=== PATIENT | female | born 1935 | race African-American/Black ===

== ENCOUNTER 2016-07-05 13:45 | Emergency (ER) | payer MEDICARE, MEDICAID ==
[~2016-07-05] VITALS: Ht 172.7 cm; Wt 68.2 kg
[2016-07-05 13:52] VITALS: Ht 172.7 cm; Wt 68.2 kg
[2016-07-05] MEDS ORDERED: SOD CHLORIDE 0.9% 1,000 ML IV STA (13:57)
--- NOTE | 2016-07-05 14:06 | ERD ---
ER Documentation Chief Complaint Date/Time DATE: 07/05/16 TIME: 14:04 Chief Complaint ALOC from SNF, low 02 sat HPI Patient is an 80-year-old female with history of psychosis and dementia [facility]2 sat and altered level of consciousness. According to the [facility], the patient's baseline mental status is alert and oriented 2, verbal. The patient is now nonverbal. Onset was sometime this morning, unknown time. prison states that the patient was also found to be hypoxic to the 80s, but EMS states that the patient had normal O2 sat during transport. Patient had a normal fingerstick glucose. Review of records show the patient was recently found to have an infiltrate on chest x-ray, but does not appear to currently be on antibiotics. ROS All systems reviewed and are negative except as per history of present illness. Medications Home Meds Unable to Obtain Active Prescriptions or Reported Meds Allergies Allergies: Coded Allergies: Unable to Assess (Verified Allergy, Unknown, 07/05/16) PMhx/Soc Past medical history: Psychosis, dementia Past surgical history: Unknown Social history: Lives in a SNF Hx Neurological Disorder: Yes (dementia) Hx Respiratory Disorders: No Hx Cardiac Disorders: No Hx Psychiatric Problems: No Hx Miscellaneous Medical Probl: Yes (anemia, dementia, parkinsons, GERD, OA) Hx Alcohol Use: No Hx Substance Use: No Hx Tobacco Use: No Smoking Status: Never smoker FmHx Unobtainable Physical Exam Vitals Vital Signs Date Time Temp Pulse Resp B/P Pulse Ox O2 Delivery O2 Flow Rate FiO2 07/05/16 13:52 98.1 78 15 147/91 100 Physical Exam Const: Alert, nonverbal Head: Atraumatic Eyes: Normal Conjunctiva, no pallor or icterus ENT: Normal External Ears, Nose and Mouth. Tacky mucous membranes Neck: Full range of motion. No JVD, no meningismus. Resp: Clear to auscultation bilaterally, no wheezes, no rales Cardio: Regular rate and rhythm, no murmurs Abd: Soft, non tender, non distended. No guarding Skin: No petechiae or rashes Back: No midline or flank tenderness Ext: No cyanosis, or edema Neur: Awake and alert, not following commands are spontaneously moving limbs. Psych: Flat affect Result Diagram: 07/05/16 1410 07/05/16 1410 Results 24 hrs Laboratory Tests Test 07/05/16 14:10 07/05/16 14:30 White Blood Count 3.310^3/ul Red Blood Count 4.6110^6/ul Hemoglobin 11.0g/dl Hematocrit 37.6% Mean Corpuscular Volume 81.6fl Mean Corpuscular Hemoglobin 23.9pg Mean Corpuscular Hemoglobin Concent 29.3g/dl Red Cell Distribution Width 14.9% Platelet Count 42507^3/UL Mean Platelet Volume 8.9fl Neutrophils % 32.6% Lymphocytes % 59.3% Monocytes % 7.2% Eosinophils % 0.6% Basophils % 0.3% Nucleated Red Blood Cells % 0.0/100WBC Neutrophils # 1.110^3/ul Lymphocytes # 2.010^3/ul Monocytes # 0.210^3/ul Eosinophils # 0.010^3/ul Basophils # 0.010^3/ul Nucleated Red Blood Cells # 0.010^3/ul Prothrombin Time 13.0Sec Prothrombin Time Ratio 1.0 INR International Normalized Ratio 0.98 Sodium Level 141mmol/L Potassium Level 3.7mmol/L Chloride Level 103mmol/L Carbon Dioxide Level 31mmol/L Anion Gap 11 Blood Urea Nitrogen 7mg/dl Creatinine 0.61mg/dl Glucose Level 87mg/dl Calcium Level 10.2mg/dl Total Bilirubin 0.8mg/dl Direct Bilirubin 0.00mg/dl Indirect Bilirubin 0.8mg/dl Aspartate Amino Transf (AST/SGOT) 22IU/L Alanine Aminotransferase (ALT/SGPT) 16IU/L Alkaline Phosphatase 129IU/L Ammonia < 0umol/l Troponin I < 0.012ng/ml Total Protein 8.5g/dl Albumin 4.1g/dl Globulin 4.40g/dl Albumin/Globulin Ratio 0.93 Urine Color LT. YELLOW Urine Clarity CLEAR Urine pH 7.5 Urine Specific [place] 1.010 Urine Ketones NEGATIVE Urine Nitrite NEGATIVE Urine Bilirubin NEGATIVE Urine Urobilinogen 0.2 E.U./dL Urine Leukocyte Esterase NEGATIVE Urine Hemoglobin NEGATIVE Urine Glucose NEGATIVE% Urine Total Protein NEGATIVE Current Medications Medications (Trade) Dose Ordered Sig/Setella Route PRN Reason Start Time Stop Time Status Last Admin Dose Admin Sodium Chloride (NS) 1,000 ml @ 1,000 mls/hr Q1H STAT IV 07/05/16 13:57 07/05/16 14:56 DC 07/05/16 14:23 Procedures/MDM EKG read by me: Time 1428, rate 77 Rhythm: Normal sinus [place]: Normal Intervals: Normal ST-T waves: no ischemic changes Ectopy: Occasional PVCs Q-waves: No Q waves, poor R-wave progression Impression: No evidence of ischemia, occasional PVCs MDM: Patient is an 80-year-old female with psychosis and dementia who is found to be less responsive today. There are no localizing neurologic symptoms or signs. On arrival in the ER the patient appeared catatonic, and quickly resolved to her baseline state. She now reports that she earlier had some suprapubic pain that is now resolved, and her son states that she has been reporting difficulty urinating. CT head and labs are all unremarkable, there is no evidence of UTI. The patient had a postvoid residual measured 2 hours after voiding that was 475 cc. The patient had received a liter bolus of saline. She likely has a mild to moderate level of urinary retention, which may be related to medications or underlying neurological condition, as the son states she is being followed by a neurologist for "leg locking." The patient has a normal, nonfocal neurologic exam at this time. She has benign abdominal exam. There is no report of back pain. The patient is chronically weak bilaterally on both legs. With regards to her transient alteration of mental status, I believe that this is likely related to her underlying sick psychosis and dementia and is not likely to be the result in acute neurologic event, given the lack of focality, and the appearance of a catatonic state on the patient's arrival. I have given strict instructions for the patient to return to the ER for any recurrence of similar symptoms, and to follow-up with PMD for further workup of urinary retention in the next 1 to 2 days. Departure Diagnosis: Primary Impression: Altered mental status Altered mental status type: transient alteration of awareness Qualified Code : R40.4 - Transient alteration of awareness Additional Impression: Urinary retention Condition: Stable TAMERA DO MD Jul 05, 2016 14:06
[2016-07-05 14:21] LABS: ADD SCAN DIFF NO
[2016-07-05 14:25] LABS: BASOPHILS % 0.3 % (0.0-2.0); EOSINOPHILS % 0.6 % (0.0-7.0); HEMATOCRIT 37.6 % (37.0-47.0); LYMPHOCYTES % 59.3 % (15.0-51.0); MEAN CORPUSCULAR HEMOGLOBIN 23.9 pg (29.0-33.0); MEAN CORPUSCULAR HGB CONC 29.3 g/dl (32.0-37.0); MEAN CORPUSCULAR VOLUME 81.6 fl (82.0-101.0); MEAN PLATELET VOLUME 8.9 fl (7.4-10.4); MONOCYTE # 0.2 10^3/ul (0.3-0.9); MONOCYTES % 7.2 % (0.0-11.0); NEUTROPHIL # 1.1 10^3/ul (1.6-7.5); NEUTROPHILS % 32.6 % (39.0-77.0); PLATELET COUNT 387 10^3/UL (140-415); RED BLOOD COUNT 4.61 10^6/ul (4.20-5.40); RED CELL DISTRIBUTION WIDTH 14.9 % (11.5-14.5); WHITE BLOOD COUNT 3.3 10^3/ul (4.8-10.8)
[2016-07-05 14:36] LABS: INR 0.98
--- NOTE | 2016-07-05 14:41 | RADRPT ---
PROCEDURE: XR Chest. CLINICAL INDICATION: Shortness of breath. Altered mental status. TECHNIQUE: Single frontal view. COMPARISON: None. FINDINGS: There is mild atelectasis at the lung bases. The lungs are otherwise clear. The heart is mildly enlarged. There is no pleural effusion. There is no pneumothorax. IMPRESSION: 1. Mild atelectasis at the lung bases. 2. Mild cardiomegaly. 3. Otherwise normal chest x-ray. RPTAT: QQ .Adam Martinez MD, Date Time Electronically viewed and signed by .Adam Martinez MD, on 07/05/2016 14:41 .R/
[2016-07-05 14:42] LABS: ALANINE AMINOTRANSFERASE 16 IU/L (13-69); ALBUMIN 4.1 g/dl (3.3-4.9); ALBUMIN/GLOBULIN RATIO 0.93; ALKALINE PHOSPHATASE 129 IU/L (42-121); ANION GAP 11 (8-16); ASPARTATE AMINO TRANSFERASE 22 IU/L (15-46); BILIRUBIN,INDIRECT 0.8 mg/dl (0-1.1); BILIRUBIN,TOTAL 0.8 mg/dl (0.2-1.3); BLOOD UREA NITROGEN 7 mg/dl (7-20); CALCIUM 10.2 mg/dl (8.4-10.2); CARBON DIOXIDE 31 mmol/L (21-31); CHLORIDE 103 mmol/L (97-110); CREATININE 0.61 mg/dl (0.44-1.00); GLUCOSE 87 mg/dl (70-220); POTASSIUM 3.7 mmol/L (3.5-5.1); SODIUM 141 mmol/L (135-144); TOTAL PROTEIN 8.5 g/dl (6.1-8.1)
[2016-07-05 14:51] LABS: TROPONIN-I < 0.012 ng/ml (0.00-0.12)
[2016-07-05 15:15] LABS: ADD UMIC NO; URINE BILIRUBIN (Dip) NEGATIVE (NEGATIVE); URINE BLOOD (Dip) NEGATIVE (NEGATIVE); URINE COLOR LT. YELLOW (YELLOW); URINE GLUCOSE (Dip) NEGATIVE (NEGATIVE); URINE KETONES (Dip) NEGATIVE (NEGATIVE); URINE LEUKOCYTE ESTERASE (Dip) NEGATIVE (NEGATIVE); URINE NITRITE (Dip) NEGATIVE (NEGATIVE); URINE TOTAL PROTEIN (Dip) NEGATIVE (NEGATIVE); URINE UROBILINOGEN (Dip) 0.2 E.U./dL (0.1-1.0)
--- NOTE | 2016-07-05 15:35 | RADRPT ---
PROCEDURE: CT Brain without. CLINICAL INDICATION: Altered mental status. TECHNIQUE: A CT of the brain was performed on multidetector high-resolution CT scanner utilizing a xial sections from the skull base through the vertex without contrast. The scan was reviewed in sof t tissue brain and high frequency resolution bone algorithm windows. Images were reviewed on a high -resolution PACS workstation. One or more the following does reduction techniques were utilized: Aut omated exposure control, adjustment of the mA/ or kV according to patient's size, or use of iterativ e reconstruction technique. The exam CTDI = 45.01 mGy and the DLP = 810.25 mGy-cm. COMPARISON: None available. FINDINGS: The ventricles and sulci are mildly to moderately prominent indicative of volume loss. There is no intracranial hemorrhage, mass effect or midline shift. No abnormal intra-axial or extra-axial fluid collections are seen. The horowitz/white matter differentiation is preserved. There are moderate scattered foci of hypoattenuation in the white matter, which are nonspecific in e tiology but likely reflect chronic small vessel ischemic changes. There are mild intracranial vascu lar calcifications consistent with atherosclerosis. The visualized paranasal sinuses demonstrate muc us secretion in the right sphenoid sinus. The mastoid air cells are essentially clear. IMPRESSION: 1. No acute intracranial hemorrhage, transcortical infarction or mass effect. 2. Mild intracranial atherosclerosis and moderate chronic small vessel ischemic changes. 3. Mild to moderate generalized cerebral volume loss. RPTAT: EE .Sakina Dale MD, MD Date Time Electronically viewed and signed by .Sakina Dale MD, MD on 07/05/2016 15:34 .N/
[2016-07-05 18:07] VITALS: BP 164/92; PULSE 80; RESP 16
== END 2016-07-05 18:16 | disposition home or self-care (01) ==
LOC: E/R 13:45
DX: R40.4 Transient alteration of awareness (principal); R33.9 Retention of urine, unspecified; R06.02 Shortness of breath
CPT/HCPCS: 36415; 70450; 71010; 80053; 81003; 82140; 84484; 85025; 85610; 93005; 99285; J7030